=== PATIENT | male | born 1975 | race Caucasian/White ===

== ENCOUNTER 2021-11-21 08:15 | Outpatient (RCR) | payer BC, SELFPAY | END 2022-01-02 14:30 | disposition home or self-care (01) | PROVIDERS: Visit Provider Family Medicine | DX: R42 Dizziness and giddiness (principal); Z51.89 Encounter for other specified aftercare | CPT/HCPCS: 97110; 97140; 97162 ==

== ENCOUNTER 2022-01-21 09:03 | Outpatient (CLI) | payer BC, SELFPAY ==
[2022-01-21 15:17] LABS: Albumin* 4.4 g/dL (3.3-5.0); Chloride* 105 mmol/L (96-114); Potassium* 4.9 mmol/L (3.6-5.1); Sodium* 139 mmol/L (135-149)
[2022-01-21 15:19] LABS: Creatinine* 0.7 mg/dL (0.5-1.5); Estimated Glomerular Filt Rate 114 ml/min
[2022-01-21 15:20] LABS: Alanine Aminotransferase* 30 U/L (4-50); Alkaline Phosphatase* 92 U/L (40-150); Aspartate Amino Transferase* 22 U/L (12-35); Bilirubin Total* 0.4 mg/dL (0.1-1.5); Blood Urea Nitrogen* 17 mg/dL (5-24); Calcium* 9.2 mg/dL (8.4-10.6); Carbon Dioxide* 27 mmol/L (20-32); Glucose* 167 mg/dL (60-115)
[2022-01-22 23:05] LABS: C-Peptide, Serum or Plasma 0.3 ng/mL (0.5-3.3)
== END 2022-01-21 09:04 | disposition home or self-care (01) ==
PROVIDERS: PCP Family Medicine; Visit Provider Family Medicine
DX: Z00.00 Encounter for general adult medical examination without abnormal findings (principal); E13.9 Other specified diabetes mellitus without complications; E78.5 Hyperlipidemia, unspecified
CPT/HCPCS: 80053; 84681

== ENCOUNTER 2022-05-28 09:33 | Outpatient (CLI) | payer BC, SELFPAY ==
[2022-05-28 13:58] LABS: Albumin* 4.4 g/dL (3.3-5.0)
[2022-05-28 14:01] LABS: Alanine Aminotransferase* 25 U/L (4-50); Alkaline Phosphatase* 74 U/L (40-150); Aspartate Amino Transferase* 23 U/L (12-35); Bilirubin Direct* 0.3 mg/dL (0.0-0.5); Bilirubin Total* 0.6 mg/dL (0.1-1.5); Lipase* 104 U/L (23-300); Total Protein* 7.2 g/dL (6.0-8.3)
== END 2022-05-28 09:34 | disposition home or self-care (01) ==
PROVIDERS: PCP Family Medicine; Visit Provider Family Medicine
DX: R10.9 Unspecified abdominal pain (principal); E78.5 Hyperlipidemia, unspecified; E13.9 Other specified diabetes mellitus without complications
CPT/HCPCS: 80076; 83690

== ENCOUNTER 2022-11-06 09:27 | Outpatient (CLI) | payer BC, SELFPAY | END 2022-11-06 09:28 | disposition home or self-care (01) | LOC: LONREF 09:29 | PROVIDERS: PCP Family Medicine; Visit Provider Family Medicine | DX: E78.5 Hyperlipidemia, unspecified (principal); E13.9 Other specified diabetes mellitus without complications | CPT/HCPCS: 80061 ==

== ENCOUNTER 2023-07-16 08:30 | Outpatient (RCR) | payer BC, SELFPAY ==
--- NOTE | 2023-05-21 10:16 | PT.OPDNX ---
PT [facility] Outpatient Daily Note PT [facility] Outpatient Daily Note Start: 10/10/22 07:10 Freq: Status: Active Protocol: Document 05/21/23 09:22 PREMA (Rec: 05/21/23 09:59 CLBeto [id number]) E-signed By Michelle Ross, PT PT OP Daily Progress Note Visit Information Note Type Daily Note,Recert/Progress Note,See Addendum Visit Number 11 Insurance Information Insurance Name [employer] Medical Diagnosis Vertigo - BPPV Treating Diagnosis BPPV CX Hypertonicity Referring MD Dr Rayshawn Jenkins Subjective Subjective Wanted a tune Up from when I saw you a few months ago. Had 2 episodes that I felt nauseas for a bit. Had some spinning and sensation of symptoms starting - lasted for a few minutes and then stopped. Fearful it might turn into a full blown vertigo again where I miss work. This has not happened. Coming in for PT every few months seems to have really helped. Pain Comments 0-2/10 DHI score of 18/100 Precautions Treatment Precautions/Contraindications Diabetic Prior Rt knee scope Weight Bearing Status Full Weight Bearing Objective Patient Instructed in Risks/Benefits Yes Therapeutic Exercise Therapeutic Exercise: To Restore He has been educated in HEP of Functional Status : -prone scapular retraction -supine chin tucks and lift for ant strength -quad position and hold head in neutral for ant strength -Supine chin tuck with CX elongation X 10 sec X 5 reps -Supine chin tuck + lift 5x5 sec (supine) -Prone Scap retraction + depression 5x5 sec -Prone scap retraction + depression + UE lift I x10 -Corner pec stretch -Seated UT stretch w/OP 2x30 sec -Seated chin tuck + scap retraction/depression -rowing with BTB -combo EXT X alvin UE with BTB -straight arm rowing BTB -bow pull back BTB Manual Therapy Techniques Manual Therapy Minutes (minutes) 24 Manual Therapy Techniques Supine: -SOR -cervical side glides grade III -STM B cervical paraspinals -TPR L>R alvin UT -occipital MFR techniques -manual traction Treatment Minutes Timed Code Treatment Minutes 24 Total Treatment Time 24 Billing Units Manual Therapy Units 2 Assessment/Impression Assessment/Impression Client exhibits improvement in all CX planes, WNL and denies pain at end ranges. He reports good compliance with entire HEP, including ambulation with head turns hor /vert at slow and moderate pace. Good VOR 1 and 2. Reports 2 moderate episodes of the sensation of episode starting, but then resolves with sitting still for 1-2 minutes. Some stickiness with side glide Rt to Lt at lower region and some discomfort with occipital release. Good UT tone. Slight palpable area of potential edema at Rt suboccipital region. Localized discomfort here with TPR. Advised to try some cold here after work in the evenings. Emphasized postural strengthening and positioning throughout the day to reduce strain to cervical spine. Plan of Care Physical Therapy Goals In 4-6 PT visits, [facility] will be able to: 1. Report reduced vertigo symptoms, in occurrence and intensity, by at least 25% 2. Reduced Vertigo self scoring Dizziness Handicap Index from initial 18/100 to at least 12/100 3. More normalized head turns/ head on body movement with reduced hesitation by at least 30% 4. More normalized CX and UB soft tissue tone with palpation. 5. Absence of missing work due to vertigo symptoms, over 6 month period as LTG (MET) Daily Plan of Care Continue per POC Daily Plan of Care Comments VOR home ex routine, deep CX mm strengthening Elvia-scapular and alvin shoulder stability program Recertification Information Initial Certification Date 10/10/22 Recertification Start Date 03/18/23 Recertification Due Date 05/21/23 Reasons to Continue Skilled Therapy This is NOT a recert, but note to for re-evaluation and signature required for cont cares. Client has only been seen 11 visits since starting therapy last mid September. Seen only periodically for sensation of return of vertigo . This has been controlling/ reducing his symptoms thus far . He has not missed work due to vertigo in 6 months. Rehabilitation Potential good Continued Plan of Care and Interventions DTM, mobs, MFR, skin rolling/ mm bending. Postural education and progressive CX deep mm strengthening, elvia-scapular strengthening. VOR progressive exercise routine Provider Signature Shows Agreement With POC & Medical Necessity Physician Comment/Change Comment or Changes Physician NPI Number #
== END 2023-11-13 23:59 | disposition home or self-care (01) ==
PROVIDERS: PCP Family Medicine; Visit Provider Family Medicine
DX: R42 Dizziness and giddiness (principal); Z51.89 Encounter for other specified aftercare
CPT/HCPCS: 97110; 97140; 97162

== ENCOUNTER 2023-08-04 09:13 | Outpatient (CLI) | payer BC, SELFPAY | END 2023-08-04 09:14 | disposition home or self-care (01) | PROVIDERS: PCP Family Medicine; Visit Provider Family Medicine | DX: E13.9 Other specified diabetes mellitus without complications (principal); R10.11 Right upper quadrant pain; Z79.84 Long term (current) use of oral hypoglycemic drugs | CPT/HCPCS: 80053; 82043; 82570 ==

== ENCOUNTER 2023-09-04 11:13 | Outpatient (CLI) | payer BC, SELFPAY | END 2023-09-04 11:14 | disposition home or self-care (01) | LOC: NFLDUCREF 11:14 | PROVIDERS: PCP Family Medicine; Visit Provider Nurse Practitioner Family | DX: S30.860A Insect bite (nonvenomous) of lower back and pelvis, initial encounter (principal); W57.XXXA Bitten or stung by nonvenomous insect and other nonvenomous arthropods, initial encounter | CPT/HCPCS: 86618 ==

== ENCOUNTER 2023-12-03 15:44 | Outpatient (CLI) | payer BC, SELFPAY | END 2023-12-03 15:45 | disposition home or self-care (01) | LOC: LKVREF 15:45 | PROVIDERS: PCP Family Medicine; Visit Provider Family Medicine | DX: E78.2 Mixed hyperlipidemia (principal) | CPT/HCPCS: 80061 ==

== ENCOUNTER 2024-09-27 14:40 | Outpatient (CLI) | payer BC, SELFPAY | END 2024-09-27 14:41 | disposition home or self-care (01) | LOC: LKVREF 14:40 | PROVIDERS: PCP Family Medicine; Visit Provider Family Medicine | DX: E11.9 Type 2 diabetes mellitus without complications (principal); E78.2 Mixed hyperlipidemia | CPT/HCPCS: 80048 ==

== ENCOUNTER 2024-12-30 11:06 | Outpatient (CLI) | payer BC, SELFPAY | END 2024-12-30 11:07 | disposition home or self-care (01) | PROVIDERS: PCP Family Medicine; Visit Provider Family Medicine | DX: Z13.6 Encounter for screening for cardiovascular disorders (principal); Z00.00 Encounter for general adult medical examination without abnormal findings; E13.9 Other specified diabetes mellitus without complications | CPT/HCPCS: 80053; 80061; 82043; 82570 ==

== ENCOUNTER 2024-12-31 14:07 | Outpatient (CLI) | payer BC, SELFPAY | END 2024-12-31 14:08 | disposition home or self-care (01) | PROVIDERS: PCP Family Medicine; Visit Provider Family Medicine | DX: Z12.5 Encounter for screening for malignant neoplasm of prostate (principal); Z13.29 Encounter for screening for other suspected endocrine disorder | CPT/HCPCS: 84439; 84443; G0103 ==

== ENCOUNTER 2025-01-24 08:40 | Outpatient (CLI) | payer BC, SELFPAY ==
--- NOTE | 2025-01-24 09:41 | P.ANES_ITS ---
Anesthesia Charges Start Date/Time Anesthesia Start Date: 01/24/25 Anesthesia Start Time: 09:20 Stop Date/Time Anesthesia Stop Date: 01/24/25 Anesthesia Stop Time: 09:40 Coding CPT Codes CPT Codes: BERENICE LWR INTST SCR COLSC - 35514 ([id number]) P2 - PATIENT W/MILD SYST DISEASE, QK - AUTOMOTIVE MACHINIST 2-4 CNCRNT ANES PROC, QX - CIRCULATION MAN SVC W/ MD MED DIRECTION
--- NOTE | 2025-01-24 09:41 | W.ANESCHARGE ---
Anesthesia Charges Start Date/Time Anesthesia Start Date: 01/24/25 Anesthesia Start Time: 09:20 Stop Date/Time Anesthesia Stop Date: 01/24/25 Anesthesia Stop Time: 09:40 Coding CPT Codes CPT Codes: BERENICE LWR INTST SCR COLSC - 81257 ([id number]) P2 - PATIENT W/MILD SYST DISEASE, QK - ASSOCIATE EMBALMER/FUNERAL DIRECTOR 2-4 CNCRNT ANES PROC, QX - APPLICATION PROGRAMMER ANALYST SVC W/ MD MED DIRECTION
--- NOTE | 2025-01-24 09:43 | P.ANES_ITS ---
Anesthesia Charges Start Date/Time Anesthesia Start Date: 01/24/25 Anesthesia Start Time: 09:20 Stop Date/Time Anesthesia Stop Date: 01/24/25 Anesthesia Stop Time: 09:40 Coding CPT Codes CPT Codes: BERENICE LWR INTST SCR COLSC - 25338 ([id number]) P2 - PATIENT W/MILD SYST DISEASE, QK - SALES SERVICE PROFESSIONAL 2-4 CNCRNT ANES PROC, QX - PROPERTY VALUER SVC W/ MD MED DIRECTION
--- NOTE | 2025-01-24 09:43 | W.ANESCHARGE ---
Anesthesia Charges Start Date/Time Anesthesia Start Date: 01/24/25 Anesthesia Start Time: 09:20 Stop Date/Time Anesthesia Stop Date: 01/24/25 Anesthesia Stop Time: 09:40 Coding CPT Codes CPT Codes: BERENICE LWR INTST SCR COLSC - 14591 ([id number]) P2 - PATIENT W/MILD SYST DISEASE, QK - DEATH CLEARANCE COORDINATOR 2-4 CNCRNT ANES PROC, QX - SLEEVE MAKER SVC W/ MD MED DIRECTION
== END 2025-01-24 08:41 | disposition home or self-care (01) ==
LOC: OP CLINIC 08:41
PROVIDERS: PCP Family Medicine; Visit Provider Internal Medicine
DX: Z12.11 Encounter for screening for malignant neoplasm of colon (principal); K57.30 Diverticulosis of large intestine without perforation or abscess without bleeding
CPT/HCPCS: 00812; 45378; J2704